=== PATIENT | male | born 1990 | race American Indian/Alaskan Native ===

== ENCOUNTER 2019-08-17 14:12 | Emergency (ER) | payer SELFPAY ==
--- NOTE | 2019-08-17 15:00 | Event Note ---
ED Screening Note Date of service: 08/17/19 Time: 14:59 ED Screening Note: Pt complains of right foot pain after twisting his ankle while playing basketball yesterday This initial assessment/diagnostic orders/clinical plan/treatment(s) is/are subject to change based on patients health status, clinical progression and re- assessment by fellow clinical providers in the ED. Further treatment and workup at subsequent clinical providers discretion. Patient/guardian urged not to elope from the ED as their condition may be serious if not clinically assessed and managed. Initial orders include: XR of foot
[2019-08-17 15:05] VITALS: BP 126/80
--- NOTE | 2019-08-17 16:05 | XRay Report ---
Right foot, 3 views INDICATION: Pain following injury today FINDINGS: The joint space is maintained. There is no fracture or dislocation. No spurring or arthriti c change. No bone lesion or periostitis. No significant abnormality. IMPRESSION: Negative study Signer Name: Peter Fonseca MD Signed: 08/17/2019 4:01 PM Workstation Name: [id number]
--- NOTE | 2019-08-17 18:10 | Emergency Department Report ---
ED Lower Extremity HPI - General Chief Complaint: Extremity Injury, Lower Stated Complaint: RIGHT FOOT Time Seen by Provider: 08/17/19 14:58 Source: patient Mode of arrival: Ambulatory Limitations: No Limitations - History of Present Illness Initial Comments: This is a 28-year-old male nontoxic, well nourished in appearance, no acute signs of distress presents to the ED with c/o of left foot pain 1 day Patient stated that while he was playing basketball he twisted his foot. Patient denies any other trauma. Patient denies any numbness, tingling, fever, chills, nausea, vomiting, chest pain, shortness of breath, headache, stiff neck. Patient denies any joint swelling or joint redness. Patient denies decreased range of motion. Patient stated has decreased gait due to pain. Patient denies any allergies or significant past medical history. MD Complaint: ankle injury -: days(s) Injury: Foot: Right Severity: mild Severity scale (0 -10): 8 Improves With: immobilization Worsens With: weight bearing, movement, palpation Associated Symptoms: swelling, able to partially bear weight. denies: snap/pop sensation, numbness, tingling, unable to bear weight - Related Data Previous Rx's Medication Instructions Recorded Last Taken Type Acetaminophen/Codeine [Tylenol 1 tab PO Q6H PRN #20 tab 09/02/14 Unknown Rx /Codeine # 3 tab] Ibuprofen [Motrin 600 MG tab] 600 mg PO Q8H PRN #40 tablet 09/02/14 Unknown Rx Naproxen 500 mg PO Q12H PRN #20 tablet 08/17/19 Unknown Rx Allergies Allergy/AdvReac Type Severity Reaction Status Date / Time No Known Allergies Allergy Unverified 06/12/14 23:48 ED Review of Systems ROS: Stated complaint: RIGHT FOOT Other details as noted in HPI Constitutional: denies: chills, fever Eyes: denies: eye pain, eye discharge, vision change ENT: denies: ear pain, throat pain Respiratory: denies: cough, shortness of breath, wheezing Cardiovascular: denies: chest pain, palpitations Endocrine: no symptoms reported Gastrointestinal: denies: abdominal pain, nausea, diarrhea Genitourinary: denies: urgency, dysuria Musculoskeletal: denies: back pain, joint swelling, arthralgia Skin: denies: rash, lesions Neurological: denies: headache, weakness, paresthesias Psychiatric: denies: anxiety, depression Hematological/Lymphatic: denies: easy bleeding, easy bruising ED Past Medical Hx - Past Medical History Previous Medical History?: No - Surgical History Past Surgical History?: Yes Additional Surgical History: LEFT LEG SURGERY - Social History Smoking Status: Never Smoker Substance Use Type: None - Medications Home Medications: Home Medications Medication Instructions Recorded Confirmed Last Taken Type Acetaminophen/Codeine [Tylenol 1 tab PO Q6H PRN #20 tab 09/02/14 Unknown Rx /Codeine # 3 tab] Ibuprofen [Motrin 600 MG tab] 600 mg PO Q8H PRN #40 tablet 09/02/14 Unknown Rx Naproxen 500 mg PO Q12H PRN #20 tablet 08/17/19 Unknown Rx ED Physical Exam - General Limitations: No Limitations General appearance: alert, in no apparent distress - Head Head exam: Present: atraumatic, normocephalic - Neck Neck exam: Present: normal inspection, full ROM - Extremities Exam Extremities exam: Present: normal inspection, full ROM, tenderness, normal capillary refill. Absent: joint swelling - Expanded Lower Extremity Exam Right Hip exam: Present: normal inspection, full ROM. Absent: tenderness, swelling Upper Leg exam: Present: normal inspection, full ROM. Absent: tenderness, swelling Knee exam: Present: normal inspection, full ROM. Absent: tenderness, swelling Lower Leg exam: Present: normal inspection, full ROM. Absent: tenderness, swelling Ankle exam: Present: normal inspection, full ROM. Absent: tenderness, swelling, abrasion, laceration, ecchymosis, deformity, crepidus, dislocation, erythema, anterior draw sign Foot/Toe exam: Present: normal inspection, full ROM, tenderness, swelling, ecch ymosis. Absent: abrasion, laceration, deformity, crepidus, dislocation, erythema, amputation, puncture wound, foreign body, calcaneal tenderness, tenderness at base of 5th metatarsal, nail avulsion, subungual hematoma Neuro vascular tendon exam: Present: no vascular compromise Gait: Positive: observed and limited by pain - Back Exam Back exam: Present: normal inspection, full ROM. Absent: tenderness, paraspinal tenderness, vertebral tenderness - Neurological Exam Neurological exam: Present: alert, oriented X3, normal gait - Psychiatric Psychiatric exam: Present: normal affect, normal mood - Skin Skin exam: Present: warm, dry, intact, normal color. Absent: rash ED Course Vital Signs 08/17/19 08/17/19 15:04 18:08 Temperature 97.9 F Pulse Rate 48 L 48 L Respiratory 16 Rate Blood Pressure 126/80 [Right] O2 Sat by Pulse 99 Oximetry - Reevaluation(s) Reevaluation #1: 08/17/19 18:08 Patient is speaking in full sentences with no signs of distress noted. ED Lower Extremity MDM - Medical Decision Making This is a 28-year-old male that presents with right foot sprain. Patient is stable and was examined by me. I referred patient to an orthopedic doctor for further evaluation for possible MRI. X-ray has been obtained and dictated by the radiologist. Patient is notified of the x-ray report with noted by the patient. Patient does have normal gait with no tenderness and no joint swelling. No ecchymosis. no joint redness or swelling. Not warm to touch. No signs of cellulites present. Patient received a ankle immobilize and crutches and was educated by RN how to use crutches. Patient was instructed to RICE therapy. Patient is discharged with Naproxen. At time of discharge, the patient does not seem toxic or ill in appearance. No acute signs of distress noted. Patient agrees to discharge treatment plan of care. No further questions noted by the patient. Critical care attestation.: If time is entered above; I have spent that time in minutes in the direct care of this critically ill patient, excluding procedure time. ED Disposition Clinical Impression: Right foot sprain Qualifiers: Encounter type: initial encounter Qualified Code(s): S93.601A - Unspecified sprain of right foot, initial encounter Disposition: TO HOME OR SELFCARE Is pt being admited?: No Does the pt Need Aspirin: No Condition: Stable Instructions: Crutch Instructions (ED), Foot Sprain (ED), RICE Therapy (ED) Additional Instructions: Follow-up with a orthopedic doctor in 3-5 days or if symptoms worsen and continue return to emergency room as soon as possible. Prescriptions: Naproxen 500 mg PO Q12H PRN #20 tablet PRN Reason: Pain , Severe (7-10) Referrals: PRIMARY MD RADHA [Primary Care Provider] - 3-5 Days MADISON BERRY MD [Staff Physician] - 3-5 Days [facility] [Provider Group] - 3-5 Days Forms: Work/School Release Form(ED)
== END 2019-08-17 18:19 | disposition home or self-care (01) ==
LOC: ED 14:12
DX: S93.601A Unspecified sprain of right foot, initial encounter (principal); Z98.890 Other specified postprocedural states; Z79.899 Other long term (current) drug therapy; X58.XXXA Exposure to other specified factors, initial encounter; Y93.89 Activity, other specified; Y92.89 Other specified places as the place of occurrence of the external cause; Y99.8 Other external cause status